=== PATIENT | female | born 1980 | race Caucasian/White ===

== ENCOUNTER → 2018-12-15 | Outpatient (REF) | payer OTHER | LOC: M SFHCLERA 15:42 | PROVIDERS: ATTEND Physician Assistant | DX: J02.9 Acute pharyngitis, unspecified (principal) ==

== ENCOUNTER → 2018-12-15 | Outpatient (CLI) | payer OTHER ==
--- NOTE | 2018-12-15 15:45 | REP ---
Clinical: Wheezing . Comparison: None . Technique: PA and lateral. Findings: The mediastinum and cardiac silhouette are normal. The lung chow are clear and without acute consolidation, effusion, or pneumothorax. The skeletal structures are intact and normal. Impression: 1. No acute cardiopulmonary process. Electronically Signed by Matias Alcala MD 12/15/2018 03:36 P
== END ==
LOC: M LRY 15:18
PROVIDERS: ATTEND Physician Assistant
DX: R06.2 Wheezing (principal)